=== PATIENT | male | born 1960 | race Caucasian/White ===

== ENCOUNTER 2020-10-19 10:39 | Day surgery (SDC) | payer BC, MEDICARE ==
[2020-10-19] VITALS (13 sets, daily range): BP systolic 116–163; BP diastolic 42–93
[~2020-10-19] VITALS: Ht 170.2 cm; Wt 86.3 kg
[2020-10-19 11:40] LABS: BASOPHILS # (AUTO) 0.1 X10'3 (0-0.2); BASOPHILS % (AUTO) 0.9 % (0-1); EOSINOPHILS # (AUTO) 0.1 X10'3 (0-0.9); EOSINOPHILS % (AUTO) 1.2 % (0-6); HEMATOCRIT 43.3 % (42.0-52.0); HEMOGLOBIN 14.6 g/dl (14.0-17.9); LYMPHOCYTES # (AUTO) 2.9 X10'3 (1.1-4.8); LYMPHOCYTES % (AUTO) 51.5 % (21-51); MEAN CORPUSCULAR HEMOGLOBIN 31.6 PG (27.0-31.0); MEAN CORPUSCULAR HGB CONC 33.6 g/dL (33.0-36.5); MEAN PLATELET VOLUME 9.3 FL (7.4-10.4); MONOCYTES # (AUTO) 0.6 X10'3 (0-0.9); MONOCYTES % (AUTO) 9.8 % (2-12); NEUTROPHILS # (AUTO) 2.1 X10'3 (1.8-7.7); NEUTROPHILS % (AUTO) 36.6 % (42-75); PLATELET COUNT 256 X10'3 (140-440); RED CELL DISTRIBUTION WIDTH 13.5 % (11.5-14.5); WHITE BLOOD COUNT 5.7 X10'3 (4.5-11.0)
[2020-10-19] MEDS ORDERED: LISI20TA28 PO (11:56)
[2020-10-19] MEDS ORDERED: OMEP20TA5 PO (11:56)
[2020-10-19] MEDS ORDERED: ALPR0.5T10 PO (11:56)
[2020-10-19] MEDS ORDERED: METO50TA16 PO (11:56)
[2020-10-19] MEDS ORDERED: OXYC-145 PO (11:56)
[2020-10-19] MEDS ORDERED: DICL-343 PO (11:56)
[2020-10-19] MEDS ORDERED: BACL10TA PO (11:56)
[2020-10-19] MEDS ORDERED: SIMV-45 PO (11:56)
[2020-10-19] MEDS ORDERED: fentaNYL/PF 50MCG/1 ML 2ML syringe IV ONE (12:55)
[2020-10-19] MEDS ORDERED: MIDAZolam 5mg/ml 2ml vial IV ONE (12:55)
[2020-10-19] MEDS ORDERED: normal saline 1000ml 1,000 ML IV SCH (13:00)
[2020-10-19] MEDS ORDERED: MIDAZolam 1mg/ml 10ml vial IV ONE (13:05)
== END 2020-10-19 16:00 | disposition home or self-care (01) ==
LOC: SSTAY O 10:39
PROVIDERS: ATTEND Radiology Diagnostic Radiology
DX: R74.8 Abnormal levels of other serum enzymes (principal); K76.0 Fatty (change of) liver, not elsewhere classified; E83.119 Hemochromatosis, unspecified; I10 Essential (primary) hypertension; Z20.822 Contact with and (suspected) exposure to COVID-19; M94.0 Chondrocostal junction syndrome [Tietze]; G89.29 Other chronic pain; E78.00 Pure hypercholesterolemia, unspecified; K21.9 Gastro-esophageal reflux disease without esophagitis; F41.9 Anxiety disorder, unspecified; Z90.49 Acquired absence of other specified parts of digestive tract; Z98.890 Other specified postprocedural states
CPT/HCPCS: 36415; 47000; 76942; 85025; 85610; 87635; C9803